=== PATIENT | male | born 1950 | race Caucasian/White ===

== ENCOUNTER → 2018-11-27 | Outpatient (CLI) | payer MEDICARE ==
[2018-11-27 12:11] LABS: Basophils # (A) 0.1 k/uL (0-0.2); Basophils % (A) 1 %; Eosinophils # (A) 0.1 k/uL (0-0.7); Eosinophils % (A) 2 %; HCT 42.5 % (39.0-53.0); HGB 13.8 gm/dL (13.0-17.5); Lymphocytes % (A) 26 %; MCH 31.2 pg (25.0-35.0); MCHC 32.4 g/dL (31.0-37.0); MCV 96.5 fL (80.0-100.0); Mean Platelet Volume 7.4; Monocytes # (A) 0.3 k/uL (0-1.0); Monocytes % (A) 9 %; Neutrophils # (A) 2.2 k/uL (1.3-7.7); Neutrophils % (A) 58 %; Platelet Count 177 k/uL (150-450); RBC 4.41 m/uL (4.30-5.90); RDW 13.7 % (11.5-15.5); WBC 3.9 k/uL (3.8-10.6)
[2018-11-27 14:35] LABS: Calcium 9.2 mg/dL (8.4-10.2)
== END ==
LOC: LABPAT 10:23
PROVIDERS: ATTEND Urology
DX: Z01.818 Encounter for other preprocedural examination (principal); Z01.812 Encounter for preprocedural laboratory examination; C61 Malignant neoplasm of prostate; R53.83 Other fatigue
CPT/HCPCS: 80048; 85025; 93005

== ENCOUNTER 2018-12-04 10:59 | Observation (INO) | payer MEDICARE ==
[2018-12-01 09:15] VITALS: BMI 25.8
--- NOTE | 2018-12-02 17:35 | P.GSHP ---
History of Present Illness H&P Date: 11/27/18 Chief Complaint: Prostate cancer The patient is a 68-year-old white male found to have a mildly elevated PSA level of 4.11. He was recently started on tamsulosin for voiding symptoms, which have improved as a result of this. KAT reveals the prostate to be mildly enlarged, with subtle firmness on the right side. Prostate ultrasound revealed a prostate volume of 29 mL, with no echogenic abnormalities. 6 of 12 biopsies showed evidence of Jonathon 7 adenocarcinoma. 5 of the 6 right-sided biopsies were positive for malignancy, and a focus was also seen at the left lateral mid gland. I had a lengthy discussion with the patient and his regarding alternative treatment options. He has elected to undergo a partial left nerve sparing robotic-assisted laparoscopic prostatectomy (RALP) with bilateral pelvic lymphadenectomy. - Cardiovascular Cardiovascular: Reports high blood pressure - Genitourinary (Female) Genitourinary: Reports nocturia Past Medical History Past Medical History: Hypertension Additional Past Medical History / Comment(s): Prostate Cancer Past Surgical History: No Surgical Hx Reported Past Psychological History: Anxiety - Past Family History Mother Family Medical History: Cancer Medications and Allergies Home Medications Medication Instructions Recorded Confirmed Type Fish Oil(Dose Unknown) 1 tab PO DAILY 12/01/18 12/01/18 History Isosorbide Mononitrate ER [Imdur] 60 mg PO DAILY 12/01/18 12/01/18 History Lisinopril [Prinivil] 10 mg PO DAILY 12/01/18 12/01/18 History Sertraline [Zoloft] 50 mg PO DAILY 12/01/18 12/01/18 History Wheat Dextrin [Benefiber] 1 each PO DAILY 12/01/18 12/01/18 History Allergies Allergy/AdvReac Type Severity Reaction Status Date / Time No Known Allergies Allergy Verified 12/01/18 09:04 Surgical - Exam - General well developed, well nourished, no distress - Neck no masses, trachea midline - Respiratory normal respiratory effort, clear to auscultation - Cardiovascular Rhythm: regular Abnormal Heart Sounds: no systolic murmur, no diastolic murmur, no rub, no S3 Gallop, no S4 Gallop, no click, no other - Abdomen Abdomen: soft, non tender, no guarding, no rigid, no rebound Hernia: inguinal - Genitourinary normal penis with no external lesions, testicles non-tender - Rectum Rectum: normal sphincter tone, no masses, other (Prostate mildly enlarged with firmness on the right) - Psychiatric oriented to time, oriented to person, oriented to place, speech is normal, memory intact Assessment and Plan (1) Malignant neoplasm of prostate Status: Acute Code(s): C61 - MALIGNANT NEOPLASM OF PROSTATE SNOMED Code(s): 926193956 Plan: Left nerve sparing robotic-assisted laparoscopic prostatectomy (RALP) with bilateral pelvic lymphadenectomy. His right inguinal hernia will be repaired by Dr. Lopez. The procedure has been reviewed in detail with the patient and his family. Potential risks include anesthesia, bleeding, infection, neurovascular injury, bowel injury, lymphocele, urinary leak, and vesical neck contracture. The patient understands the likelihood of erectile dysfunction despite prese rvation of the left neurovascular bundle. He is aware of the possibility of post-prostatectomy urinary incontinence, and the fact that this may fail to resolve. He also understands the possible need for adjuvant therapy. The possible need to convert to an open procedure was discussed.
[~2018-12-04 10:59] MED LIST: DEXAMETHASONE SOD PHOSPHATE 10 MG/ML 1 ML VIAL IV ONE; HEPARIN SODIUM,PORCINE 5,000 UNIT/ML 1 ML VIAL SQ ONE; HYDROmorphone 0.5 MG/0.5 ML SYRINGE IVP PRN; LIDOCAINE 1% 20 ML VIAL (10MG/ML) FOR IV START INTRADERMA PRN; ceFAZolin IN SWFI 2 GM/20 ML SYRINGE IVP ONE
[2018-12-04 11:30] LABS: Glucose,Whole Blood 96 mg/dL (75-99)
[2018-12-04] MEDS: LACTATED RINGERS 1,000 ML IV SCH (11:32)
[2018-12-04] MEDS ORDERED: LACTATED RINGERS 1,000 ML IV ONE (11:32)
[2018-12-04] MEDS: ONDANSETRON 4 MG/2 ML VIAL IVP ONE ×2 (11:38→18:20)
[2018-12-04] MEDS ORDERED: SUCCINYLCHOLINE CHLORIDE 100 MG/5 ML SYR IV ONE (13:05)
[2018-12-04] MEDS ORDERED: LIDOCAINE 1% INJ 10MG/ML (20 ML MDV) ONE (13:05)
[2018-12-04] MEDS ORDERED: PROPOFOL 10 MG/ML 20 ML VIAL IV ONE (13:05)
[2018-12-04] MEDS ORDERED: GLYCOPYRROLATE 0.2 MG/ML 2 ML VIAL ONE (13:05)
[2018-12-04] MEDS ORDERED: MIDAZOLAM 2 MG/2 ML VIAL ONE (13:05)
[2018-12-04] MEDS ORDERED: VECURONIUM 10 MG VIAL IV ONE (13:05)
[2018-12-04] MEDS ORDERED: NEOSTIGMINE 1 MG/ML 10 ML VIAL ONE (13:05)
[2018-12-04] MEDS ORDERED: ceFAZolin 1,000 MG VIAL ONE (13:05)
[2018-12-04] MEDS ORDERED: fentaNYL (PF) 50 MCG/ML 2 ML AMP ONE (13:05)
[2018-12-04] MEDS ORDERED: ONDANSETRON 4 MG/2 ML VIAL IVP PRN (17:02)
[2018-12-04] MEDS ORDERED: ACETAMINOPHEN TAB 325 MG TAB PO PRN (17:02)
--- NOTE | 2018-12-04 17:43 | P.OP ---
Date of Procedure: 12/04/18 Preoperative Diagnosis: Adenocarcinoma of the prostate, clinical stage [id number] Postoperative Diagnosis: Same Procedure(s) Performed: Robotic-assisted laparoscopic prostatectomy (RALP) with bilateral pelvic lymphadenectomy Anesthesia: TRAN Surgeon: Heriberto Nicolas Hot Metal Charger #1: Liana Ortiz Estimated Blood Loss (ml): 100 IV fluids (ml): 700 Pathology: other (Prostate, seminal vesicles, pelvic lymph nodes) Condition: stable Disposition: PACU Indications for Procedure: The patient is a 68-year-old white male found to have a mildly elevated PSA level of 4.11. He was recently started on tamsulosin for voiding symptoms, which have improved as a result of this. KAT reveals the prostate to be mildly enlarged, with subtle firmness on the right side. Prostate ultrasound revealed a prostate volume of 29 mL, with no echogenic abnormalities. 6 of 12 biopsies showed evidence of Jonathon 7 adenocarcinoma. 5 of the 6 right-sided biopsies were positive for malignancy, and a focus was also seen at the left lateral mid gland. I had a lengthy discussion with the patient and his regarding alternative treatment options. He has elected to undergo a partial left nerve sparing robotic-assisted laparoscopic prostatectomy (RALP) with bilateral pelvic lymphadenectomy. He has been noted to have a right inguinal hernia, which will be repaired by Dr. Lopez. Operative Findings: No evidence of extraprostatic disease. Description of Procedure: The patient was taken in the operating room and placed in the dorsal lithotomy position, with his legs supported in Kendrick stirrups. He was carefully positioned on a beanbag for stability. The abdomen and external genitalia were prepped and draped sterilely. A Brown catheter was inserted. The Veress needle was passed through the anterior abdominal wall immediately cephalad to the umbilicus, and insufflation was performed to a pressure of 20 mm Hg. Once insufflation was performed, the Veress needle was removed and a supraumbilical incision was made, through which a 12 mm camera port was placed. Under camera guidance, 3 8 mm robotic ports were placed, 2 on the left and one on the right. An additional 12 mm port was placed on the right lateral side for use as an delivery driver assistant port. A 5 mm port was placed to the right of the camera port for suction. The patient was placed in Trendelenburg position, and docking was then performed to the da Denny system utilizing a 4-arm approach. The abdomen was examined. The sigmoid colon was mobilized out of the pelvis. The peritoneum was incised lateral to the medial umbilical ligaments bilaterally, exposing the pubis. The peritoneum was then incised across the midline, allowing the bladder flap to be taken down. On the right side, this was performed more lateral than usual to expose the right inguinal hernia and remove a wide peritoneal flap. The endopelvic fascia was opened bilaterally, and muscular attachments from the urogenital diaphragm were swept away from the prostate. Bilateral pelvic lymphadenectomies were performed in the standard fashion. The peritoneal incisions were extended in a cephalad direction, and the vas deferens were divided bilaterally. Margins of dissection were the bifurcation of the iliac vessels proximally, the circumflex iliac vein distally, the external iliac artery laterally, and the obturator nerve medially. A combination of sharp and blunt dissection was used. Care was taken to avoid any neurovascular injury, and the use of monopolar electrocautery was avoided immediately adjacent to neurovascular structures. The lymphatic package was clipped distally. No enlarged lymph nodes were encountered. There were no complications. The vesical neck was incised transversely, down to the lumen. The Brown catheter was brought out through the anterior vesical neck incision and was used for traction. The posterior aspect of the vesical neck was incised, such that the full-thickness of the vesical neck was divided. The anterior layer of the Denonvilliers fascia was incised, exposing the vas deferens. Each were isolated and divided. Next, each of the seminal vesicles were dissected away from adjacent tissues, and vascular attachments were cauterized and divided. The posterior leaf of Denonvilliers fascia was incised transversely, allowing entry into the plane between the prostate and rectum. With lateral spreading, this plane was developed down to the apex. This exposed the lateral vascular pedicles bilaterally. These were clipped and divided in an antegrade fashion, down to the apex. Given the tumor volume on the right side, the right neurovascular bundle was not preserved. However, the plane of dissection was adjacent to the prostate on the left side, thus partially preserving the left neurovascular bundle. The use of electrocautery was avoided on the left side to prevent thermal damage to the nerves. The remaining apical attachments were swept away from the prostate. The dorsal venous complex was incised, as well as periurethral tissue. At this point, only the urethra remained intact. This was transected immediately distal to the prostatic apex using cold scissors. The specimen was placed within a specimen bag. The dorsal venous complex was sutured using a V-Loc suture in a running fashion. A second V-Loc suture was then used to place the Cristian stitch, incorporating the rhabdosphincter and the edge of Denonvilliers fascia. This allowed the bladder to be taken down to the urethra, leaving the vesical neck immediately adjacent to the urethra. The vesicourethral anastomosis was then performed using a V-Loc suture in a running fashion. After completing the anastomosis, an 18-St [place] Brown catheter was placed and approximately 150 mL of 0.9 normal saline were instilled into the bladder. No extravasation of irrigant from the vesicourethral anastomosis was noted. A small amount of oozing was noted from the left lateral vascular pedicle, so Surgicel was placed over the vascular pedicles. Tisseel was sprayed into the pelvis over the vascular pedicles, dorsal vein, and vesicourethral anastomosis. Dr. Lopez then performed the hernia repair, closing the peritoneal flap over a mesh graft. He will dictate this separately. The patient was returned to the supine position. Undocking was performed, and the specimen bag sutures were passed through the camera port. After removing all the ports and allowing all of the CO2 to be released from the peritoneal cavity, the camera port incision was enlarged to allow removal of the surgical specimen. The fascia of this incision was then closed using 0 Vicryl suture in an interrupted [id number] fashion. Each of the skin incisions were then closed using 4-0 Monocryl suture in a subcuticular fashion. Marcaine was injected at each of the incision sites. Dermabond was applied to each incision. The Brown catheter was connected to gravity drainage. All sponge and needle counts were correct. The patient tolerated the procedure well was taken to the recovery room in stable condition.
[2018-12-04] MEDS ORDERED: BUPIVACAINE (PF) 0.5% 30 ML VIAL SQ ONE (17:45)
[2018-12-04] MEDS ORDERED: diphenhydrAMINE 50 MG/ML 1 ML VIAL IVP ONE (18:29)
--- NOTE | 2018-12-04 18:59 | P.OP ---
Date of Procedure: 12/04/18 Procedure(s) Performed: PREOPERATIVE DIAGNOSIS: Right inguinal hernia POSTOPERATIVE DIAGNOSIS: Same PROCEDURE: Da Denny laparoscopic assisted repair right inguinal hernia SURGEON: John EBL: Minimal ANESTHESIA: General COMPLICATIONS: None OPERATIVE PROCEDURE: This procedure was performed in conjunction with Dr. Nicolas who performed a robotic-assisted prostatectomy with limited pelvic lymph node dissection. The peritoneal flap was raised and dissected by urology. The hernia sac was able to be reduced by them without difficulty. Bilateral vas deferens were divided by urology. After completion of the prostatectomy and the anastomosis a 16 x 12 cm Progrip mesh was placed overlying the defect at the internal inguinal ring. No sutures were utilized. The peritoneal flap was then closed using 2 separate 9 inch 2-0V lock sutures. A 3-0 Vicryl suture was also used in the left apical closure where there was a small gap noted. The remainder the procedure will be dictated by urology. DISPOSITION: Stable to recovery room
[2018-12-04] MEDS: HYDROmorphone 1 MG/ML 1 ML SYRINGE IVP PRN (19:27)
[2018-12-04] MEDS: DEXTROSE 5%-0.45% NACL 1,000 ML IV SCH (19:28)
[2018-12-04] MEDS: HEPARIN SODIUM,PORCINE 5,000 UNIT/ML 1 ML VIAL SQ SCH (21:08)
[2018-12-05] MEDS: HYDROmorphone 1 MG/ML 1 ML SYRINGE IVP PRN ×4 (00:42→20:09)
[2018-12-05] MEDS: LACTATED RINGERS 1,000 ML IV SCH (02:20)
[2018-12-05] MEDS: DEXTROSE 5%-0.45% NACL 1,000 ML IV SCH ×3 (04:04→18:16)
[2018-12-05] MEDS: LISINOPRIL 10 MG TAB PO SCH (08:53)
[2018-12-05] MEDS: HEPARIN SODIUM,PORCINE 5,000 UNIT/ML 1 ML VIAL SQ SCH ×2 (08:53→20:23)
[2018-12-05] MEDS: ISOSORBIDE MONONITRATE ER 60 MG TAB.ER.24H PO SCH (08:53)
[2018-12-05] MEDS: SERTRALINE 50 MG TAB PO SCH (08:53)
[2018-12-05] MEDS ORDERED: HYDROcodone/APAP 5-325MG 1 EACH TAB PO PRN ×2 (10:43→16:49)
--- NOTE | 2018-12-05 10:46 | P.PN ---
<Shirley Garibay - Last Filed: 12/05/18 10:24> Subjective Progress Note Date: 12/05/18 CHIEF COMPLAINT: Right inguinal hernia HISTORY OF PRESENT ILLNESS: 68-year-old male who underwent robotic-assisted laparoscopic prostatectomy with bilateral pelvic lymphadenectomy with Dr. Nicolas and Da Denny laparoscopic assisted repair of right inguinal hernia with Dr. Lopez. POD #1. Patient examined this morning at the bedside. He reports a lot of pain this morning. He just received pain medication prior to my examination. Patient tolerating diet. Denies nausea or vomiting. Brown intact with clear yellow urine. Vital signs stable. PHYSICAL EXAM: VITAL SIGNS: Reviewed. GENERAL: Well-developed in no acute distress. HEENT: No sclera icterus. Extraocular movements grossly intact. Moist buccal mucosa. Head is atraumatic, normocephalic. ABDOMEN: Soft. Nondistended. Surgical incision sites clean dry intact without drainage. NEUROLOGIC: Alert and oriented. Cranial nerves II through XII grossly intact. ASSESSMENT: 1. Right inguinal hernia, s/p repair 2. Adenocarcinoma of the prostate, s/p prostatectomy PLAN: 1. Continue regular diet as toleratd 2. Pain control. Will add [place] PRN. 3. Incentive spirometry 4. Activity as tolerated 5. Brown catheter management per Dr. Nicolas Nurse practitioner note has been reviewed by physician. Signing provider agrees with the documented findings, assessment, and plan of care. Objective - Vital Signs Vital signs: Vital Signs Temp 98.6 F 12/05/18 07:00 Pulse 66 12/05/18 07:00 Resp 16 12/05/18 07:00 BP 134/66 12/05/18 07:00 Pulse Ox 98 12/05/18 07:00 Intake & Output 12/04/18 12/05/18 12/05/18 18:59 06:59 18:59 Intake Total 1850 1725 496 Output Total 700 1150 Balance 1150 575 496 Intake: IV 1850 Intake, IV Titration 1625 Amount Dextrose 5%-0.45% NaCl 1, 1625 000 ml @ 125 mls/hr IV . Q8H [facility] Rx#:[id number] Oral 100 496 Output: Urine 600 1150 Uretheral (Brown) 700 Estimated Blood Loss 100 Other: Voiding Method Indwelling Catheter Indwelling Catheter <Yariel Lopez - Last Filed: 12/05/18 20:07> Subjective As above. Patient having some abdominal discomfort this afternoon. He is a febrile with stable vitals. Continue increasing activity. Possible discharge tomorrow. Objective - Vital Signs Vital signs: Vital Signs Temp 98.2 F 12/05/18 14:39 Pulse 76 12/05/18 14:39 Resp 14 12/05/18 14:39 BP 122/67 12/05/18 14:39 Pulse Ox 95 12/05/18 18:12 Intake & Output 12/05/18 12/05/18 12/06/18 06:59 18:59 06:59 Intake Total 1725 2028 Output Total 1150 1075 Balance 575 953 Intake: IV 1000 Dextrose 5%-0.45% NaCl 1, 1000 000 ml @ 125 mls/hr IV . Q8H [facility] Rx#:[id number] Intake, IV Titration 1625 Amount Dextrose 5%-0.45% NaCl 1, 1625 000 ml @ 125 mls/hr IV . Q8H [facility] Rx#:[id number] Oral 100 1028 Output: Urine 1150 1075 Uretheral (Brown) 700 Other: Voiding Method Indwelling Catheter Indwelling Catheter
[2018-12-05] MEDS: KETOROLAC 30 MG/ML 1 ML VIAL IVP PRN ×2 (14:51→20:09)
--- NOTE | 2018-12-05 16:49 | P.PN ---
Subjective Progress Note Date: 12/05/18 Principal diagnosis: POD #1, s/p RALP Mr. Escalera feels reasonably well. He reports incisional discomfort, as expected. He is tolerating diet in small amounts, without nausea. He ambulated in the hallway without difficulty. He denies chest pain or shortness of breath. Objective - Vital Signs Vital signs: Vital Signs Temp 98.2 F 12/05/18 14:39 Pulse 76 12/05/18 14:39 Resp 14 12/05/18 14:39 BP 122/67 12/05/18 14:39 Pulse Ox 92 L 12/05/18 14:39 Intake & Output 12/04/18 12/05/18 12/05/18 18:59 06:59 18:59 Intake Total 1850 1725 1732 Output Total 700 1150 675 Balance 0579 064 5126 Intake: IV 1850 1000 Dextrose 5%-0.45% NaCl 1, 1000 000 ml @ 125 mls/hr IV . Q8H [facility] Rx#:[id number] Intake, IV Titration 1625 Amount Dextrose 5%-0.45% NaCl 1, 1625 000 ml @ 125 mls/hr IV . Q8H [facility] Rx#:[id number] Oral 100 732 Output: Urine 600 1150 675 Uretheral (Brown) 700 Estimated Blood Loss 100 Other: Voiding Method Indwelling Catheter Indwelling Catheter - Constitutional General appearance: Present: cooperative, no acute distress - Gastrointestinal Gastrointestinal Comment(s): Soft, non-distended. Incisions clean, dry, and intact. Brown catheter draining clear yellow urine. Assessment and Plan (1) Malignant neoplasm of prostate Current Visit: No Status: Acute Code(s): C61 - MALIGNANT NEOPLASM OF PROSTATE SNOMED Code(s): 347831741 Plan: Mr. Escalera's condition is stable. However, he does not feel that he is ready fo r discharge. He will remain hospitalized overnight, with the expectation that he will be discharged home tomorrow with the Brown catheter. Postoperative instructions were reviewed, and ambulation was encouraged.
[2018-12-05] MEDS: HYDROcodone/APAP 5-325MG 1 EACH TAB PO PRN (18:59)
[2018-12-06] MEDS: LACTATED RINGERS 1,000 ML IV SCH (01:05)
[2018-12-06 03:13] VITALS: RESP 16
[2018-12-06] MEDS: HYDROmorphone 1 MG/ML 1 ML SYRINGE IVP PRN ×3 (04:04→08:41)
[2018-12-06 08:06] VITALS: PULSE 64
[2018-12-06] MEDS: SERTRALINE 50 MG TAB PO SCH (08:49)
[2018-12-06] MEDS: LISINOPRIL 10 MG TAB PO SCH (08:49)
[2018-12-06] MEDS: HEPARIN SODIUM,PORCINE 5,000 UNIT/ML 1 ML VIAL SQ SCH (08:49)
[2018-12-06] MEDS: ISOSORBIDE MONONITRATE ER 60 MG TAB.ER.24H PO SCH (08:49)
--- NOTE | 2018-12-06 10:26 | P.DS ---
Providers Date of admission: 12/05/18 04:02 Expected date of discharge: 12/06/18 Attending physician: Heriberto Nicolas Primary care physician: MARIA ISABEL Waters Hospital Course: The patient was recently diagnosed with prostate cancer and elected to proceed with RALP for treatment. He also has a right inguinal hernia. Dr. Nicolas performed robotically-assisted laparoscopic prostatectomy on the date of admission and Dr. Lopez performed laparoscopic right inguinal hernia repair. He remained afebrile postop. He was able to tolerate a regular diet on the first day postop and was discharged on the second day postop. His incisions appear to be healing well. Urine was clear at the time of discharge. Procedures: Robotically assisted laparoscopic prostatectomy and right inguinal hernia repair 12/05/2018 Patient Condition at Discharge: Good Plan - Discharge Summary Discharge Rx Participant: Yes New Discharge Prescriptions: New Ciprofloxacin HCl [Cipro] 250 mg PO Q12HR #6 tablet Hydrocodone/Acetaminophen [[place] 5-325] 1 - 2 each PO Q4HR PRN #6 tab PRN Reason: Pain No Action Sertraline [Zoloft] 50 mg PO DAILY Lisinopril [Prinivil] 10 mg PO DAILY Isosorbide Mononitrate ER [Imdur] 60 mg PO DAILY Fish Oil(Dose Unknown) 1 tab PO DAILY Wheat Dextrin [Benefiber] 1 pack PO DAILY Discharge Medication List Fish Oil(Dose Unknown) 1 tab PO DAILY 12/01/18 [History] Isosorbide Mononitrate ER [Imdur] 60 mg PO DAILY 12/01/18 [History] Lisinopril [Prinivil] 10 mg PO DAILY 12/01/18 [History] Sertraline [Zoloft] 50 mg PO DAILY 12/01/18 [History] Wheat Dextrin [Benefiber] 1 pack PO DAILY 12/01/18 [History] Ciprofloxacin HCl [Cipro] 250 mg PO Q12HR #6 tablet 12/05/18 [Rx] Hydrocodone/Acetaminophen [[place] 5-325] 1 - 2 each PO Q4HR PRN #6 tab 12/05/18 [Rx] Follow up Appointment(s)/Referral(s): Yariel Lopez MD [Medical Doctor] - 1 Week Heriberto Nicolas MD [STAFF PHYSICIAN] - 12/16/[address] [facility], [NON-STAFF] - Activity/Diet/Wound Care/Special Instructions: Discharge home with Brown catheter. Instruct patient to use overnight drainage bag as well as urinary leg bag. Okay to shower. Diet as tolerated. No lifting, driving, or strenuous activity. Reassure patient that abdominal wall ecchymosis and penoscrotal swelling are normal. Instruct patient to begin taking antibiotics one day prior to Brown catheter removal. Discharge Disposition: HOME SELF-CARE Pending Studies Pending Results: Pathology report
[2018-12-06] MEDS: HYDROcodone/APAP 5-325MG 1 EACH TAB PO PRN ×2 (11:06→15:36)
[2018-12-06] MEDS: KETOROLAC 30 MG/ML 1 ML VIAL IVP PRN (11:07)
[2018-12-06] MEDS: DEXTROSE 5%-0.45% NACL 1,000 ML IV SCH ×2 (11:07)
[2018-12-06 15:04] VITALS: BP 135/64; TEMP 97.9
== END 2018-12-06 15:46 | disposition home or self-care (01) ==
LOC: OR 10:59 → 4SSUR 17:39 → OR 12-05 04:01 → 4SSUR 12-05 04:02
PROVIDERS: ADMIT Urology; ATTEND Urology
DX: C61 Malignant neoplasm of prostate (principal); F41.9 Anxiety disorder, unspecified; I10 Essential (primary) hypertension; K40.90 Unilateral inguinal hernia, without obstruction or gangrene, not specified as recurrent; Z79.899 Other long term (current) drug therapy
CPT/HCPCS: 96372 ×3; 86900; 86901; 86850; 88307; 88309; 55866; 38571; 49650; G0378 ×2; C1762; C1781; J2250; J1200; J1644 ×3; J1100; J2710; J2405; J0690 ×2; J0694; J2001; J3010; J1885 ×2; J1170 ×4; J0330; J2704